=== PATIENT | male | born 1930 | race Caucasian/White ===

== ENCOUNTER → 2016-08-09 | Outpatient (CLI) | payer MEDICARE ==
[~2016-08-09] MED LIST: ASA CHILDREN'S81 MG PO; FLOMAX DPS0.4 MG PO; MULTI VITAMIN1 EACH PO; NITROSTAT0.4 MG SL; PRAVACHOL40 MG PO; QUESTRAN PWD378 GM PO; WELCHOL625 MG PO
== END | disposition home or self-care (01) ==
LOC: RAD.S 10:55
DX: M79.604 Pain in right leg (principal); M79.89 Other specified soft tissue disorders